=== PATIENT | male | born 1990 | race Caucasian/White ===

== ENCOUNTER 2020-12-29 18:07 | Emergency (ER) | payer OTHER, BC ==
[2020-12-29] MEDS ORDERED: Lidocaine 1% with EPINEPHrine 1:100,000 20 ML MDV INJECT ONE (19:30)
[2020-12-29] MEDS ORDERED: Diphtheria,Pertussis(Acell),Tetanus Vaccine 0.5 ML Syringe IM ONE (19:31)
--- NOTE | 2020-12-29 19:36 | EDM.PDOC ---
ED HPI GENERAL MEDICAL PROBLEM - General Chief Complaint: Laceration Stated Complaint: LEG LAC Time Seen by Provider: 12/29/20 18:38 Source of Information: Reports: Patient History Limitations: Reports: No Limitations - History of Present Illness INITIAL COMMENTS - FREE TEXT/NARRATIVE: Patient is a 30-year-old male who lacerated his left anterior leg while at work when he was injured by a piece of metal that he walked into. Patient denies any other injuries and is not up-to-date with his tetanus. He is able ambulate without any difficulty has no bony injury. Bleeding is well controlled without any intervention. There is no blood clotting disorders. Onset: Today Location: Reports: Lower Extremity, Left Quality: Reports: Ache Severity: Mild Worsens with: Reports: None Other Treatments [employer]: denies Past Medical History HEENT History: Reports: Impaired Vision Other HEENT History: corrective lenses Cardiovascular History: Reports: None Respiratory History: Reports: None Gastrointestinal History: Reports: None Genitourinary History: Reports: None Musculoskeletal History: Reports: None Neurological History: Reports: None Psychiatric History: Reports: Depression Endocrine/Metabolic History: Reports: None Hematologic History: Reports: None Immunologic History: Reports: None Oncologic (Cancer) History: Reports: None Dermatologic History: Reports: Angiodema - Infectious Disease History Infectious Disease History: Reports: None - Past Surgical History Head Surgeries/Procedures: Reports: None HEENT Surgical History: Reports: Tonsillectomy Cardiovascular Surgical History: Reports: None GI Surgical History: Reports: None Musculoskeletal Surgical History: Reports: None Social & Family History - Tobacco Use Tobacco Use Status *Q: Never Tobacco User Second Hand Smoke Exposure: No - Caffeine Use Caffeine Use: Reports: Coffee, Soda, Tea Caffeine Use Comment: 2 caffeine beverages daily - Alcohol Use Days Per Week of Alcohol Use: 7 Number of Drinks Per Day: 2 Total Drinks Per Week: 14 - Recreational Drug Use Recreational Drug Use: No ED ROS GENERAL - Review of Systems Review Of Systems: Comprehensive ROS is negative, except as noted in HPI. Musculoskeletal: Reports: Leg Pain Skin: Reports: Other (3 cm laceration anterior left leg.) ED EXAM, SKIN/RASH Exam: See Below Exam Limited By: No Limitations General Appearance: Alert, No Apparent Distress Head: Normocephalic Neck: Supple Respiratory/Chest: No Respiratory Distress GI/Abdominal: No Distention Back Exam: Full Range of Motion Extremities: Leg Pain, Other (3 cm laceration to anterior leg that is not bleeding. There is no bony tenderness.) Neurological: Alert, Oriented Skin: Warm, Dry ED SKIN PROCEDURES - Laceration/Wound Repair Left Lower Anterior Midline Leg Appearance: Subcutaneous, Clean Distal NVT: Neuro & Vascular Intact Anesthetic Type: Local Local Anesthesia - Lidocaine (Xylocaine): 1% with EPI Local Anesthetic Volume: 3cc Skin Prep: Chlorhexidine (Hibiciens) Saline Irrigation (cc's): 100 Closed with: Sutures Lac/Wound length In cm: 3 Suture Size: 3-0 Suture Type: Nylon # of Sutures: 4 Sterile Dressing Applied: Nurse Tetanus Status Addressed: Yes Complications: No Progress/Comments: Tolerated procedure well. Good approximation of wound edges. Course - Vital Signs Text/Narrative:: Patient tolerated procedure well he was given a tetanus shot. He was given wound care discharge instructions by me. Suture removal 7 days return sooner if any sign of infection. Last Recorded V/S: Last Vital Signs Temp 97.2 F 12/29/20 19:18 Pulse 90 12/29/20 19:18 Resp 16 12/29/20 19:18 BP 135/102 H 12/29/20 19:18 Pulse Ox - Orders/Labs/Meds Orders: Active Orders 24 hr Category Date Time Status Vaccine to be Administered/Admin Charge [RC] ASDIRECTED Care 12/29/20 19:31 Active Meds: Medications Discontinued Medications Generic Name Dose Route Start Last Admin Trade Name Freq PRN Reason Stop Dose Admin Diphtheria/Tetanus/Acell Pertussis 0.5 ml 12/29/20 19:31 Diphtheria,Pertussis(Acell),Tetanus Vaccine 0.5 Ml Syringe IM 12/29/20 19:32 .ONCE ONE Lidocaine/Epinephrine 20 ml 12/29/20 19:30 Lidocaine 1% With Epinephrine 1:100,000 20 Ml Mdv INJECT 12/29/20 19:31 ONETIME ONE Lidocaine/Epinephrine Confirm 12/29/20 19:42 Lidocaine 1% With Epinephrine 1:100,000 10 Ml Mdv Administered 12/29/20 1 9:43 Dose 10 ml .ROUTE .STK-MED ONE Departure - Departure Time of Disposition: 19:52 Disposition: Home, Self-Care 01 Condition: Good Clinical Impression: Laceration of leg not thigh, left - Discharge Information Instructions: Laceration Care, Adult Referrals: Annalisa Pan PA-C [Primary Care Provider] - Forms: ED Department Discharge Additional Instructions: Keep clean and dry. Antibiotic ointment twice a day. Return to ER in 7 days for suture removal. Return sooner for any signs of infection. Sepsis Event Note (ED) - Focused Exam Vital Signs: Vital Signs Temp Pulse Resp BP 12/29/20 19:18 97.2 F 90 16 135/102 H - My Orders Last 24 Hours: My Active Orders 12/29/20 19:31 Vaccine to be Administered/Admin Charge [RC] ASDIRECTED - Assessment/Plan Last 24 Hours: My Active Orders 12/29/20 19:31 Vaccine to be Administered/Admin Charge [RC] ASDIRECTED
[2020-12-29] MEDS ORDERED: Lidocaine 1% with EPINEPHrine 1:100,000 10 ML MDV ONE (19:42)
[2020-12-29] MEDS ORDERED: Lidocaine 1% with EPINEPHrine 1:100,000 10 ML MDV INJECT ONE (20:09)
== END 2020-12-29 20:20 | disposition home or self-care (01) ==
LOC: JD.ED 18:07
DX: S81.812A Laceration without foreign body, left lower leg, initial encounter (principal); Z23 Encounter for immunization; W26.8XXA Contact with other sharp object(s), not elsewhere classified, initial encounter
CPT/HCPCS: 12002; 90471; 90715; 99282; 99282-25